=== PATIENT | female | born 1950 ===

== ENCOUNTER 2021-07-02 05:41 | Inpatient (IN) ==
[2021-07-02] MEDS ORDERED: Lactated Ringers 1000 ml BAG 1,000 ML IV SCH (06:00)
[2021-07-02] MEDS ORDERED: Buffered Lidocaine 1% SYRIN 1 ml INTRADERM ONE (06:00)
[2021-07-02] MEDS ORDERED: Famotidine IV 10 MG/ML 2 ml VIAL (20 mg) IV ONE (06:00)
[2021-07-02] MEDS ORDERED: ceFAZolin 2 GM in NS PREMIX 2 GM/100 ML BAG IVPB ONE (06:03)
[2021-07-02] MEDS ORDERED: Famotidine IV 10 MG/ML 2 ml VIAL (20 mg) ONE (06:03)
[2021-07-02] MEDS ORDERED: Propofol 10 MG/ML 20 ML BTL ONE (06:55)
[2021-07-02] MEDS ORDERED: Lidocaine 2% PF 5 ML VIAL ONE ×2 (06:56→07:19)
[2021-07-02] MEDS ORDERED: Midazolam 5 mg/5 ml VIAL 1 mg/ml 5 ml VIAL (5 mg) ONE (06:58)
[2021-07-02] MEDS ORDERED: Ketamine HCL 50 mg/ml 10 ml VIAL (500 MG) ONE (06:59)
[2021-07-02] MEDS ORDERED: ROPIVACAINE 5 MG/ML 30 ML BTL (0.5%) ONE ×2 (07:06→07:19)
[2021-07-02] MEDS ORDERED: fentaNYL 100 mcg/2 ml 50 MCG/ML VIAL ONE (07:19)
[2021-07-02] MEDS ORDERED: EPHEDrine (Pressors) 50 MG/ML VIAL ONE (08:01)
[2021-07-02] MEDS ORDERED: Ondansetron 4 mg VIAL 2 MG/ML 2 ml VIAL ONE (08:12)
[2021-07-02] MEDS ORDERED: Ondansetron 4 mg VIAL 2 MG/ML 2 ml VIAL IV PRN ×2 (08:35→09:53)
[2021-07-02] MEDS ORDERED: Magnesium Hydroxide LIQ 30 ML UDC PO PRN (08:35)
[2021-07-02] MEDS ORDERED: diPHENhydraMINE 25 mg TAB PO PRN (08:35)
[2021-07-02] MEDS ORDERED: diPHENhydraMINE IV 50 MG/ML 1 ml VIAL (BENADRYL) IV PRN (08:35)
[2021-07-02] MEDS ORDERED: Ondansetron ODT 4 mg TAB 4 MG TAB PO PRN (08:35)
[2021-07-02] MEDS ORDERED: Lactulose 30 ml UDC PO PRN (08:35)
[2021-07-02] MEDS ORDERED: Morphine 2 MG/ML SYRINGE IV PRN (08:35)
[2021-07-02] MEDS ORDERED: HYDROmorphone 1 MG/1 ML SYRINGE IV PRN (09:53)
[2021-07-02] MEDS ORDERED: Naloxone 0.4 mg VIAL 0.4 mg/ml 1 ml VIAL IV PRN (09:53)
[2021-07-02] MEDS ORDERED: fentaNYL 100 mcg/2 ml 50 MCG/ML VIAL IV PRN (09:53)
[2021-07-02] MEDS: Lactated Ringers 1000 ml BAG 1,000 ML IV SCH ×2 (11:10→21:50)
[2021-07-02] MEDS: Vitamin THERAPEUTIC TAB PO SCH (12:03)
[2021-07-02] MEDS: Magnesium Hydroxide LIQ 30 ML UDC PO SCH ×2 (12:03→21:46)
[2021-07-02] MEDS: Potassium Chlor 10 meq TAB PO SCH (12:04)
[2021-07-02] MEDS: ceFAZolin 1 GM ADVAN 1 GM in NS 0.9% 50 ML 50 ML IVPB SCH (16:04)
[2021-07-03] MEDS: ceFAZolin 1 GM ADVAN 1 GM in NS 0.9% 50 ML 50 ML IVPB SCH ×2 (00:32→07:49)
[2021-07-03 06:47] LABS: Hematocrit 34 % (35-47); Hemoglobin 11.6 g/dL (12.0-16.0); Mean Platelet Volume 8.4 fL (7.4-10.4); Platelet Count 250 10^3/uL (150-450)
[2021-07-03 06:56] LABS: Calcium 8.7 mg/dL (8.6-10.3); EGFR African American 104.7 (>60); EGFR Non-African American 86.5 (>60); Potassium 3.5 mmol/L (3.5-5.0)
[2021-07-03] MEDS: Potassium Chlor 10 meq TAB PO SCH (08:43)
[2021-07-03] MEDS: Magnesium Hydroxide LIQ 30 ML UDC PO SCH ×2 (08:43→08:46)
[2021-07-03] MEDS: Vitamin THERAPEUTIC TAB PO SCH (08:43)
[2021-07-03 11:25] VITALS: BP 123/55
== END 2021-07-03 13:55 | disposition home or self-care (01) | DRG 470 ==
LOC: AA 05:41 → SSU 11:12
PROVIDERS: ADMIT Orthopaedic Surgery Adult Reconstructive Orthopaedic Surgery; ATTEND Orthopaedic Surgery Adult Reconstructive Orthopaedic Surgery